=== PATIENT | female | born 1935 | race Two or more races ===

== ENCOUNTER 2021-05-06 11:41 | Inpatient (IN) | payer OTHER ==
[~2021-05-06] VITALS: Ht 162.6 cm; Wt 66.7 kg
[2021-05-06] MEDS ORDERED: TOPROL XL25 MG (12:00)
[2021-05-07] MEDS ORDERED: LISINOPRIL20 MG (11:06)
[2021-05-07] MEDS ORDERED: ISOSORBIDE MONO30 M2 (11:06)
[2021-05-07] MEDS ORDERED: OMEPRAZOLE20 MG (11:07)
== END 2021-05-12 17:40 | disposition home or self-care (01) | DRG 311 ==
LOC: ER 11:41 → ICU-2 23:09 → ICU 23:09 → MEDI 05-10 18:16 → ICU 05-10 18:29 → MEDI 05-10 22:43
PROVIDERS: ADMIT Internal Medicine; ATTEND Internal Medicine
PROC: 8E0ZXY6 Isolation (ICD-10-PCS; principal; 2021-05-06)
PROC: B246ZZZ Ultrasonography of Right and Left Heart (ICD-10-PCS; 2021-05-06)
PROC: 4A12X4Z Monitoring of Cardiac Electrical Activity, External Approach (ICD-10-PCS; 2021-05-06)
PROC: 3E0F7SF Introduction of Other Gas into Respiratory Tract, Via Natural or Artificial Opening (ICD-10-PCS; 2021-05-06)
PROC: 3E0F7GC Introduction of Other Therapeutic Substance into Respiratory Tract, Via Natural or Artificial Opening (ICD-10-PCS; 2021-05-06)
PROC: B54DZZZ Ultrasonography of Bilateral Lower Extremity Veins (ICD-10-PCS; 2021-05-07)
PROC: 4A02XM4 Measurement of Cardiac Total Activity, External Approach (ICD-10-PCS; 2021-05-11)
PROC: 3E073KZ Introduction of Other Diagnostic Substance into Coronary Artery, Percutaneous Approach (ICD-10-PCS; 2021-05-11)
PROC: C22G1ZZ Tomographic (Tomo) Nuclear Medicine Imaging of Myocardium using Technetium 99m (Tc-99m) (ICD-10-PCS; 2021-05-11)
DX: I24.9 Acute ischemic heart disease, unspecified (principal); U07.1 COVID-19; I11.0 Hypertensive heart disease with heart failure; I25.10 Atherosclerotic heart disease of native coronary artery without angina pectoris; I50.9 Heart failure, unspecified; I25.2 Old myocardial infarction; E66.3 Overweight; Z68.25 Body mass index [BMI] 25.0-25.9, adult